=== PATIENT | female | born 1985 | race Caucasian/White ===

== ENCOUNTER 2022-07-01 10:51 | Outpatient (CLI) | payer BC, SELFPAY ==
[2022-07-01 21:51] LABS: Albumin* 4.2 g/dL (3.3-5.0); Chloride* 106 mmol/L (96-114)
[2022-07-01 21:52] LABS: Sodium* 140 mmol/L (135-149)
[2022-07-01 21:54] LABS: Carbon Dioxide* 27 mmol/L (20-32); Cholesterol* 165 mg/dL (90-199); Creatinine* 0.5 mg/dL (0.5-1.5); Estimated Glomerular Filt Rate 122 ml/min
[2022-07-01 21:55] LABS: Alanine Aminotransferase* 20 U/L (4-35); Alkaline Phosphatase* 73 U/L (40-150); Aspartate Amino Transferase* 31 U/L (12-35); Bilirubin Direct* 0.2 mg/dL (0.0-0.5); Bilirubin Total* 0.5 mg/dL (0.1-1.5); Blood Urea Nitrogen* 8 mg/dL (5-24); Calcium* 8.8 mg/dL (8.4-10.6); Glucose* 91 mg/dL (60-115); HDL Cholesterol* 61 mg/dL (>=50); LDL Cholesterol Calculated 91 mg/dL (<100); Total Protein* 7.6 g/dL (6.0-8.3); Triglycerides* 63 mg/dL (40-149)
[2022-07-01 22:32] LABS: Hepatitis C Virus Antibody* Negative (Negative)
[2022-07-01 22:33] LABS: HIV 1/2/P24 Combo Screen* Negative (Negative)
== END 2022-07-01 10:52 | disposition home or self-care (01) ==
PROVIDERS: PCP Physician Assistant Medical; Visit Provider Physician Assistant Medical
DX: Z00.00 Encounter for general adult medical examination without abnormal findings (principal); F32.A Depression, unspecified; F41.9 Anxiety disorder, unspecified; Z13.29 Encounter for screening for other suspected endocrine disorder
CPT/HCPCS: 80048; 80061; 80076; 84443; 86703; 86803

== ENCOUNTER 2023-06-16 14:50 | Outpatient (CLI) | payer BC, SELFPAY ==
--- NOTE | 2023-06-16 15:00 | CRLHL7_ITS ---
For Patients: As a result of the Century Cures Act, medical imaging exams and procedure reports are released immediately into your electronic medical record. You may view this report before your referring provider. If you have questions, please contact your health care provider. BILATERAL SCREENING MAMMOGRAM WITH COMPUTER-AIDED DETECTION AND TOMOSYNTHESIS TECHNIQUE: CC and MLO views were obtained. These mammographic images have been obtained using full-field digital technique. These mammographic images were interpreted with the benefit of computer-aided detection. Breast Tomosynthesis was used in this interpretation. COMPARISON FILM: Baseline. FINDINGS: The breasts are heterogeneously dense, which may obscure small masses. IMPRESSION: There is no radiographic evidence for malignancy. ASSESSMENT: BI-RADS Category 2: Benign RECOMMENDATION: Routine screening mammogram in 1 year. A lay language report of this examination will be provided to the patient. Eliezer Paniagua M.D. Diagnostic Radiologist [email or web address] SP/Dictated by: Eliezer Paniagua MD @ 06/17/2023 10:25:00 AM (Electronically Signed)
== END 2023-06-16 14:51 | disposition home or self-care (01) ==
LOC: MAMMO 14:51
PROVIDERS: PCP Physician Assistant Medical; Visit Provider Physician Assistant Medical
DX: Z12.31 Encounter for screening mammogram for malignant neoplasm of breast (principal); R92.2 Inconclusive mammogram
CPT/HCPCS: 77063; 77067

== ENCOUNTER 2023-07-04 11:09 | Outpatient (CLI) | payer BC, SELFPAY | END 2023-07-04 11:10 | disposition home or self-care (01) | PROVIDERS: PCP Physician Assistant Medical; Visit Provider Physician Assistant | DX: N39.0 Urinary tract infection, site not specified (principal); B96.20 Unspecified Escherichia coli [E. coli] as the cause of diseases classified elsewhere | CPT/HCPCS: 87086; 87186 ==

== ENCOUNTER 2023-07-05 12:36 | Outpatient (CLI) | payer BC, SELFPAY | END 2023-07-05 12:37 | disposition home or self-care (01) | LOC: NFLDREF 12:37 | PROVIDERS: PCP Physician Assistant Medical; Visit Provider Physician Assistant | DX: N39.9 Disorder of urinary system, unspecified (principal); B96.20 Unspecified Escherichia coli [E. coli] as the cause of diseases classified elsewhere | CPT/HCPCS: 87070; 87186 ==